=== PATIENT | female | born 1980 | race Caucasian/White ===

== ENCOUNTER 2016-05-09 10:47 | Emergency (ER) | payer OTHER ==
[~2016-05-09] VITALS: Ht 157.5 cm; Wt 56.7 kg
--- NOTE | 2016-05-09 11:50 | ED GI/GU/ABDOMINAL COMPLAINT ---
History of Present Illness General Chief Complaint: Abdominal Pain/Flank Pain Stated Complaint: RT SIDE ABDOMINAL PAIN Source: patient Exam Limitations: no limitations Vital Signs & Intake/Output Vital Signs & Intake/Output ED Intake and Output 05/10 0000 05/09 1200 Intake Total Output Total Balance Patient 125 lb Weight Allergies Uncoded Allergies: ENVIRONMENTAL (02/29/12) Reconcile Medications Cetirizine HCl (Zyrtec) 10 MG TABLET 1 TAB PO DAILY ALLERGIES (Reported) Dextroamphetamine/Amphetamine (Dextroamp-Amphetamin 30 MG Tab) 30 MG TABLET 1 TAB PO BID ADHD (Reported) Oxycodone HCl/Acetaminophen (Percocet 5-325 MG Tablet) 5 MG-325 MG TABLET 1-2 TAB PO Q6P PRN PAIN Triage Note: C/O FLANK PAIN SINCE LAST PM, WORSE TODAY. STATES PAIN RADIATES TO BACK, WORSE ON PALPATION, WITH SLIGHT NAUSEA. DENIES URINARY SX OR . HAS IUD. Triage Nurses Notes Reviewed? yes ? N Is pt currently ? No HPI: 35-year-old female with right flank right upper quadrant abdominal pain that started yesterday fairly suddenly and has been mildly intermittent since but has becoming more constant and more severe, sharp moderate to severe pain. No history of kidney stones. She has no urinary symptoms no frequency no urgency no burning. There is mild fleeting nausea however at this can be normal for patient. Patient notes that she has history of sludge in her gallbladder 10 years ago but is unsure as to the reason she is aware of this. She was previously taking Aleve which she believed was causing epigastric upset which she thought was gastritis/reflux from the NSAIDs and has been taking Prilosec for. She occasionally gets sided scapular pain as well. She has no pain radiating into the lower abdominal region. She denies chance of , has an IUD. She denies any fever or flulike illness. There is no vomiting. She has a mild the decreased appetite today. She denies obvious symptoms of pain after eating. There is no treatment thus far today (ABIGAIL BEAVER,MEKA) Past History Travel History Traveled to [place] past 21 day No Medical History Any Pertinent Medical History? none Neurological: NONE EENT: NONE Cardiovascular: NONE Respiratory: NONE Gastrointestinal: NONE Hepatic: NONE Renal: NONE Musculoskeletal: NONE Psychiatric: ADHD Endocrine: NONE Surgical History Surgical History: IUD removal Psychosocial History What is your primary language Estonian Tobacco Use: Never used ETOH Use: denies use Family History Hx Contributory? No (MEKA CROUCH) Review of Systems Review of Systems Constitutional: Reports: see HPI. EENTM: Reports: no symptoms. Respiratory: Reports: no symptoms. Cardiovascular: Reports: no symptoms. GI: Reports: see HPI. Genitourinary: Reports: no symptoms. Musculoskeletal: Reports: no symptoms. Skin: Reports: no symptoms. Neurological/Psychological: Reports: no symptoms. Hematologic/Endocrine: Reports: no symptoms. Immunologic/Allergic: Reports: no symptoms. All Other Systems: Reviewed and Negative (MEKA CROUCH) Physical Exam Physical Exam Gastrointestinal: normal bowel sounds, soft, tenderness in the epigastric region and right upper quadrant. No lower abdominal tenderness. No CVA tenderness, no flank pain or tenderness. Comments: Well-developed well-nourished no apparent distress. HEENT: Atraumatic, extraocular motion intact Neck: Supple, no lymphadenopathy Back: Nontender Respiratory: No respiratory distress Extremities: No edema, full range of motion Neuro: Alert and oriented x3 Psych: Mood affect normal, normal memory normal judgment. Skin: Warm and dry, no rash on exposed skin Core Measures ACS in differential dx? No Severe Sepsis Present: No Septic Shock Present: No (MEKA CROUCH) Progress Differential Diagnosis: AAA, AMI, appendicitis, biliary colic, bowel obstruction , colon cancer, cholecystitis, diverticulitis, ectopic , endometritis, esophageal varices, gastritis, hepatitis, hernia, hemorrhoids, ischemic bowel, inflamm bowel dis, intrauterine , kidney stone, Leigha-Talia tear, ovarian cyst, ovarian torsion, pancreatitis, PID/cervicitis, peptic ulcer, PUD/ GERD, perforated viscous, SBO, threatened AB, UTI/pyelo Plan of Care: Orders Procedure Date/time Status LIPASE 05/09 1135 Complete COMPREHENSIVE METABOLIC PANEL 05/09 1135 Complete CBC WITHOUT DIFFERENTIAL 05/09 1135 Complete AMYLASE 05/09 1135 Complete URINE 05/09 1107 Complete URINALYSIS 05/09 1107 Complete Laboratory Tests 05/09/16 1141: Anion Gap 10, Estimated GFR > 60, BUN/Creatinine Ratio 24.0, Glucose 92, Calcium 9.4, Total Bilirubin 0.9, AST 28, ALT 47, Alkaline Phosphatase 52, Total Protein 7.7, Albumin 4.6, Globulin 3.1, Albumin/Globulin Ratio 1.5, Amylase 50, Lipase 94, CBC w Diff NO MAN DIFF REQ, RBC 3.97 L, MCV 92.6, MCH 31.8 H, RDW 12.7, MPV 8.0, Gran % 65.3, Lymphocytes % 28.8, Monocytes % 4.8, Eosinophils % 0.7, Basophils % 0.4, Absolute Granulocytes 4.3, Absolute Lymphocytes 1.9, Absolute Monocytes 0.3, Absolute Eosinophils 0, Absolute Basophils 0, PUBS MCHC 34.3 05/09/16 1110: Urine Color YEL, Urine Clarity HAZY H, Urine pH 5.5, Ur Specific [place] >= 1.030, Urine Protein 30 H, Urine Ketones NEG, Urine Nitrite POS H, Urine Bilirubin NEG, Urine Urobilinogen 0.2, Ur Leukocyte Esterase NEG, Ur Microscopic SEDIMENT EXAMINED, Urine RBC 1-3, Urine WBC 3-5 H, Ur Epithelial Cells MOD H, Urine Bacteria PACKD H, Urine Hemoglobin NEG, Urine Glucose NEG, Urine Test NEGATIVE Diagnostic Imaging: Viewed by Me: Ultrasound. Discussed w/RAD: Ultrasound. Radiology Impression: PATIENT: JROGE PEDERSON PRESENT AGE: 35 PATIENT ACCOUNT NO: [id number] : 80 LOCATION: [facility] ORDERING PHYSICIAN: MEKA BEAVER SERVICE DATE: 05/09/16 EXAM TYPE: US - US -LIMITED ABDOMEN EXAMINATION: US ABDOMEN LIMITED CLINICAL INFORMATION: Right upper quadrant pain. COMPARISON: None TECHNIQUE: Real-time imaging of the right upper quadrant abdominal viscera. FINDINGS: PANCREAS: Partially obscured by overlying bowel gas. Visualized portions are unremarkable. LIVER: Normal. The liver demonstrates normal size, contour and echogenicity. No focal lesion or intrahepatic biliary duct dilatation. GALLBLADDER: Normal. The gallbladder is physiologically distended without evidence of stones, sludge, polyps, wall thickening or pericholecystic fluid. COMMON BILE DUCT: Normal in caliber measuring 0.2 cm in diameter. RIGHT KIDNEY: Normal. No hydronephrosis. No renal calculi or focal parenchymal lesions. The kidney measures 10.7 cm in maximum dimension. FREE FLUID: None. IMPRESSION: Unremarkable right upper quadrant ultrasound. DICTATED BY: BARBIE VIVEROS MD DATE/TIME DICTATED:05/09/161233 WIRE GALVANIZER:ARABELLA DATE/TIME TRANSCRIBED:05/09/161233 Initial ED EKG: none Comments: patient was given Toradol 30 mg IM and labs and ultrasound was ordered, evaluate for gallbladder disease or right-sided hydronephrosis. Patient reevaluated and she is feeling better after the Toradol. Her ultrasound and lab tests are unremarkable, white count is within normal limits and there is no shift. Amylase and lipase are normal as well as LFTs. After discussion with the patient, shared decision making, who both felt that she did not require a CT scan at this time. She declined anything further for pain or nausea. She will return with worsening pain, nausea, vomiting, fever. (MEKA CROUCH) Departure Departure Disposition: HOME OR SELF CARE Condition: Stable Clinical Impression Primary Impression: Acute right flank pain Referrals: TAI ISRAEL MD (PCP/Family) Additional Instructions: RETURN WITH WORSENING FLANK OR ABDOMINAL PAIN, FEVER, VOMITING. WATCH FOR ANY RASH OR BLISTERS IN THE AREA WHICH WOULD INDICATE SHINGLES, YOU WILL NEED TO BE PLACED ON ANTIVIRALS FOR THIS. Departure Forms: Customer Survey General Discharge Information (MEKA CROUCH) PA/RESISTOR TESTER Co-Sign Statement Statement: ED Attending supervision documentation- [] I saw and evaluated the patient. I have also reviewed all the pertinent lab results and diagnostic results. I agree with the findings and the plan of care as documented in the PA's/RESISTOR TESTER's documentation. [X] I have reviewed the ED Record and agree with the PA's/RESISTOR TESTER's documentation. [] Additions or exceptions (if any) to the PAs/RESISTOR TESTER's note and plan are summarized below: [] (COLT BERGERON DO
[2016-05-09 11:58] LABS: ABSOLUTE BASOPHIL COUNT 0 /CUMM (0.0-0.2); ABSOLUTE EOSINOPHIL COUNT 0 /CUMM (0.0-0.7); ABSOLUTE GRANULOCYTE CT 4.3 /CUMM (1.4-6.5); ABSOLUTE LYMPH COUNT 1.9 /CUMM (1.2-3.4); ABSOLUTE MONOCYTE COUNT 0.3 /CUMM (0.10-0.60); BASOPHIL % 0.4 % (0.0-2.0); EOSINOPHIL % 0.7 % (0-5); GRANULOCYTE % 65.3 % (42.2-75.2); HEMATOCRIT 36.8 % (37-47); MEAN CORPUSCULAR HGB 31.8 PG (27.0-31.0); MEAN CORPUSCULAR HGB CONC 34.3 G/DL (33.0-37.0); MEAN CORPUSCULAR VOLUME 92.6 FL (81.0-99.0); PLATELET COUNT 254 /CUMM (130-400); RBC DISTRIBUTION WIDTH 12.7 % (11.5-14.5); RED BLOOD CELL CT 3.97 /CUMM (4.20-5.40); WHITE BLOOD CELL COUNT 6.5 /CUMM (4.8-10.8)
[2016-05-09] MEDS ORDERED: DEXTROAMP-AMPHE30 MG PO (12:25)
[2016-05-09] MEDS ORDERED: ZYRTEC10 M3 PO (12:25)
--- NOTE | 2016-05-09 12:38 | ULTRASOUND REPORT ---
EXAMINATION: US ABDOMEN LIMITED CLINICAL INFORMATION: Right upper quadrant pain. COMPARISON: None TECHNIQUE: Real-time imaging of the right upper quadrant abdominal viscera. FINDINGS: PANCREAS: Partially obscured by overlying bowel gas. Visualized portions are unremarkable. LIVER: Normal. The liver demonstrates normal size, contour and echogenicity. No focal lesion or intrahepatic biliary duct dilatation. GALLBLADDER: Normal. The gallbladder is physiologically distended without evidence of stones, sludge, polyps, wall thickening or pericholecystic fluid. COMMON BILE DUCT: Normal in caliber measuring 0.2 cm in diameter. RIGHT KIDNEY: Normal. No hydronephrosis. No renal calculi or focal parenchymal lesions. The kidney measures 10.7 cm in maximum dimension. FREE FLUID: None. IMPRESSION: Unremarkable right upper quadrant ultrasound.
[2016-05-09 13:00] VITALS: BP 120/76
[2016-05-09] MEDS ORDERED: PERCOCET 5-3251 EACH PO (21:58)
== END 2016-05-09 13:00 ==
LOC: ERH 10:47
PROVIDERS: Physician Assistant Surgical
DX: R10.9 Unspecified abdominal pain (principal)
CPT/HCPCS: 81001; 81025; 96372; J1885

== ENCOUNTER 2016-05-09 19:43 | Emergency (ER) | payer OTHER ==
[~2016-05-09] VITALS: Ht 157.5 cm; Wt 56.7 kg
[~2016-05-09 19:43] MED LIST: DEXTROAMP-AMPHE30 MG PO; ZYRTEC10 M3 PO
--- NOTE | 2016-05-09 19:51 | ED GI/GU/ABDOMINAL COMPLAINT ---
History of Present Illness General Chief Complaint: Abdominal Pain/Flank Pain Stated Complaint: RT SIDED ABD PAIN WORSE, SEEN HERE TODAY FOR SAME Source: patient, old records Exam Limitations: no limitations Allergies Uncoded Allergies: ENVIRONMENTAL (02/29/12) Triage Nurses Notes Reviewed? yes ? N Is pt currently ? No HPI: 35-year-old female returns to the ER with worsening right-sided flank pain and epigastric/right upper quadrant abdominal pain. Mild to moderate nausea. She was seen here earlier by myself this morning, had labs and an ultrasound of the right upper quadrant and right kidney which were negative. She felt better after Toradol. She went back to work, she is an ICU nurse here at our facility, throughout the day she is getting worsening pain. It is moderate to severe at this time, sharp and she has been holding her side throughout the day. After her shift ended, her pain was getting significant A worse and she came down to the ER for another evaluation. We had discussed possibly getting a CT scan on initial visit however, after a discussion and shared decision making occurred, we both felt that the patient did not require it at that time. Currently she is feeling worse and will order a CT scan with IV contrast. We'll also obtain a urinalysis that is a clean catch as her previous urine was a dirty specimen and send this new clean catch for analysis and culture. She denies any fever or vomiting or shortness of breath tachycardia or chest pain. she denies any cough congestion, urinary symptoms or flulike illness (MEKA CROUCH) Vital Signs & Intake/Output Vital Signs & Intake/Output Vital Signs Date Time Temp Pulse Resp B/P Pulse O2 O2 Flow FiO2 Ox Delivery Rate 05/09 2246 96.8 97 16 119/82 98 Room Air 05/09 195 98.4 85 18 145/85 100 Room Air ED Intake and Output 05/10 0000 05/09 1200 Intake Total 0 Output Total Balance 0 Intake, Oral 0 Patient 125 lb Weight Reconcile Medications Cetirizine HCl (Zyrtec) 10 MG TABLET 1 TAB PO DAILY ALLERGIES (Reported) Dextroamphetamine/Amphetamine (Dextroamp-Amphetamin 30 MG Tab) 30 MG TABLET 1 TAB PO BID ADHD (Reported) Oxycodone HCl/Acetaminophen (Percocet 5-325 MG Tablet) 5 MG-325 MG TABLET 1-2 TAB PO Q6P PRN PAIN (ROMA REYES) Past History Travel History Traveled to [place] past 21 day No Medical History Any Pertinent Medical History? none Neurological: NONE EENT: NONE Cardiovascular: NONE Respiratory: NONE Gastrointestinal: NONE Hepatic: NONE Renal: NONE Musculoskeletal: NONE Psychiatric: ADHD Endocrine: NONE Surgical History Surgical History: IUD removal Psychosocial History What is your primary language [place]ib[place]ian Family History Hx Contributory? No (MEKA CROUCH) Review of Systems Review of Systems Constitutional: Reports: see HPI. EENTM: Reports: no symptoms. Respiratory: Reports: no symptoms. Cardiovascular: Reports: no symptoms. GI: Reports: see HPI. Genitourinary: Reports: no symptoms. Musculoskeletal: Reports: no symptoms. Skin: Reports: no symptoms. Neurological/Psychological: Reports: no symptoms. Hematologic/Endocrine: Reports: no symptoms. Immunologic/Allergic: Reports: no symptoms. All Other Systems: Reviewed and Negative (MEKA CROUCH) Physical Exam Physical Exam General Appearance: well developed/nourished Respiratory: normal breath sounds, chest non-tender, no respiratory distress Cardiovascular: regular rate/rhythm Gastrointestinal: normal bowel sounds, TENDERNESS IN THE RIGHT UPPER QUADRANT EPIGASTRIC REGION AND MILD RIGHT-SIDED FLANK TENDERNESS. mILD cva TENDERNESS ON THE RIGHT SIDE ONLY Neurologic/Psych: no motor/sensory deficits, awake, alert, oriented x 3, normal gait Comments: Well-developed well-nourished no apparent distress. HEENT: Atraumatic, extraocular motion intact Neck: Supple, no lymphadenopathy Back: Nontender Respiratory: No respiratory distress Extremities: No edema, full range of motion Neuro: Alert and oriented x3 Psych: Mood affect normal, normal memory normal judgment. Skin: Warm and dry, no rash on exposed skin (MEKA CROUCH) Core Measures ACS in differential dx? No Severe Sepsis Present: No Septic Shock Present: No (ROMA REYES) Progress Differential Diagnosis: AAA, AMI, appendicitis, biliary colic, bowel obstruction , colon cancer, cholecystitis, diverticulitis, ectopic , endometritis, esophageal varices, gastritis, hepatitis, hernia, hemorrhoids, ischemic bowel, inflamm bowel dis, intrauterine , kidney stone, Leigha-Talia tear, ovarian cyst, ovarian torsion, pancreatitis, PID/cervicitis, peptic ulcer, PUD/ GERD, perforated viscous, SBO, threatened AB, UTI/pyelo Initial ED EKG: none Hand-Off Endorsed To: ROMA REYES Endorsed Time: 2013 Pending: CT Comments: We'll obtain CT scan of abdomen and pelvis with IV contrast. Considered PE as well or pulmonary infarct however patient's only risk factor is hormone replacement with an IUD, she has no unilateral leg pain and swelling or edema, she has not cough or hemoptysis, she does not feel short of breath and she is not tachycardic. We'll obtain another urine analysis was clean catch and send this for culture evaluating for possible pyelonephritis. She is given IV Toradol 30 mg and 4 mg IV Zofran as well as liter of normal saline. Patient signed out to Roma BEAVER at change of shift, awaiting performance of CT scan (MEKA CROUCH) Plan of Care: Orders Procedure Date/time Status CULTURE,URINE 05/09 1957 Active URINALYSIS 05/09 1957 Complete Saline Lock 05/09 1946 Active Laboratory Tests 05/09/162118: Urine Color YEL, Urine Clarity CLEAR, Urine pH 6.0, Ur Specific [place] 1.010, Urine Protein NEG, Urine Ketones NEG, Urine Nitrite NEG, Urine Bilirubin NEG, Urine Urobilinogen 0.2, Ur Leukocyte Esterase NEG, Ur Microscopic EXAM NOT REQUIRED, Urine Hemoglobin NEG, Urine Glucose NEG Microbiology 05/09 2118 URINE ROUT: Urine Culture - RES GRAM NEGATIVE RODS Departure Departure Condition: Stable Referrals: TAI ISRAEL MD (PCP/Family) Departure Forms: Customer Survey General Discharge Information (MEKA CROUCH) Departure Disposition: HOME OR SELF CARE Clinical Impression Primary Impression: Abdominal pain Prescriptions: Current Visit Scripts Oxycodone HCl/Acetaminophen (Percocet 5-325 MG Tablet) 1-2 TAB PO Q6P PRN PAIN #20 TAB Comments 05/09/2016 10:41:14 PM Patient given a slip for an outpatient HIDA scan. At this time musculoskeletal versus biliary colic. She clinically looks well. No white count. No signs of cholecystitis. Patient seen by Dr. alegria. Return if any other concerns worsening symptoms. (ROMA REYES) PA/OPERATIONS ANALYST Co-Sign Statement Statement: ED Attending supervision documentation- x I saw and evaluated the patient. I have also reviewed all the pertinent lab results and diagnostic results. I agree with the findings and the plan of care as documented in the PA's/OPERATIONS ANALYST's documentation. [] I have reviewed the ED Record and agree with the PA's/OPERATIONS ANALYST's documentation. [] Additions or exceptions (if any) to the PAs/OPERATIONS ANALYST's note and plan are summarized below: [] (MARIANO ARBOLEDA,ROBIN)
--- NOTE | 2016-05-09 21:27 | CT SCAN REPORT ---
EXAMINATION: CT ABDOMEN AND PELVIS WITH CONTRAST CLINICAL INFORMATION: Flank pain. Right-sided symptoms COMPARISON: None TECHNIQUE: Multidetector volumetric imaging was performed of the abdomen and pelvis before and after the IV administration of 95 mL of Optiray 320 intravenous contrast. Sagittal and coronal reformatted images were obtained on the technologist's workstation. DLP: 283 mGy-cm FINDINGS: LUNG BASES: No suspicious abnormality in the visualized lower chest LIVER, GALLBLADDER, AND BILIARY TREE: No suspicious abnormality on early phase liver images. There is no calcified gallstone. There is no biliary dilation PANCREAS: Within normal limits SPLEEN: Normal ADRENAL GLANDS: No suspicious abnormality KIDNEYS AND URETERS: There is no dilation of the intrarenal collecting system on either side. There is no opaque urinary calculus. There is no suspicious renal mass. There is a poorly defined small area of decreased attenuation at the junction of the upper pole and interpolar left kidney. No significant mass effect. Possibilities include a focal area of pyelonephritis. BLADDER: The bladder is nearly empty and not well evaluated. GASTROINTESTINAL TRACT: Large amount of fecal residue throughout the colon. There is a retrocecal normal caliber appendix. This extends to the lower margin of the right lobe of liver and adjacent to the mid right kidney. There is no significant small bowel dilation. ABDOMINAL WALL: No significant hernia is appreciated. LYMPH NODES: There are no enlarged abdominal or pelvic lymph nodes. There is no significant free intraperitoneal fluid. VASCULAR: There is no abdominal aortic aneurysm. The portal vein enhances. The IVC is distended. There are dilated vessels in the parametrial region bilaterally. Correlate with any clinical evidence of pelvic congestion. PELVIC VISCERA: There is an IUD present. There is a 3.5 cm right adnexal cyst. OSSEOUS STRUCTURES: No suspicious focal bony lesion. The coccyx appears to be diminutive or absent. This could be a normal variant IMPRESSION: There is no etiology for right upper quadrant pain demonstrated. No etiology for right flank pain demonstrated. There is a normal caliber appendix ascending adjacent to the mid right kidney and lower margin of the right lobe the liver There is a focal poorly defined low attenuating area in the left kidney. This could represent focal pyelonephritis. However, the clinical information provided suggests the symptoms are right-sided. Therefore recommend a follow-up ultrasound with attention to the upper left kidney in approximately 6-8 weeks. 3.5 cm right adnexal cyst. Dilated pelvic vessels.
[2016-05-09] MEDS ORDERED: PERCOCET 5-3251 EACH PO (21:58)
[2016-05-09 22:46] VITALS: BP 119/82
== END 2016-05-09 22:50 ==
LOC: ERH 19:43
DX: R10.11 Right upper quadrant pain (principal); R10.13 Epigastric pain
CPT/HCPCS: 74177; 81003; 87086; 96361; 96374; 96375; J1885; J2405